=== PATIENT | female | born 1945 | race Caucasian/White ===

== ENCOUNTER → 2018-02-16 | Outpatient (CLI) | payer OTHER ==
[~2018-02-16] MED LIST: ASPIR 8181 MG PO; ATORVASTATIN CA40 MG PO; CALCIUM 600 +1 EAC1 PO; CARDIZEM CD240 MG PO; CIPRO500 MG PO; CO Q-10100 MG PO; DIOVAN320 MG PO; FISH OIL500 M2 PO; LEVOTHYROXIN0.075 MG PO; MULTIVITAMINS1 EAC7 PO; PHENAZOPYRIDIN200 M2 PO; VITAMINC500
== END ==
LOC: RAD 10:20
DX: Z12.31 Encounter for screening mammogram for malignant neoplasm of breast (principal)

== ENCOUNTER → 2018-02-23 | Outpatient (CLI) | payer OTHER | LOC: NUC 10:18 → EDSTATUS 13:38 → NUC 13:43 | DX: M85.89 Other specified disorders of bone density and structure, multiple sites (principal); Z78.0 Asymptomatic menopausal state ==

== ENCOUNTER → 2018-04-07 | Outpatient (CLI) | payer OTHER ==
--- NOTE | ~2018-04-07 | TST ---
[facility] [place] [address] TREADMILL STRESS TEST Name: FARIHA LOPEZ Room #: REG [facility]#: [id number] Admission: 04/07/18 Attend Phys: Juan Palencia, Discharge: Date of : 43 Date of Service: 04/07/181705 Report #: [id number] THIS REPORT FOR: //name// APPROVED REPORT Patient Location: Out-Patient Room #: Echo lab Stress Nurse: Aubree Colorado RN David Lopez exercised for 5 minutes on the standard Jose Cruz protocol and achieved 142 bpm or 96% of her maximal predicted heart rate for age. The pretest blood pressure was 160/80 and chel[place] with exercise to 202/80. She stopped exercising due to dyspnea and fatigue. Maximum workload achieved 7.0 METS. Resting EKG: Sinus rhythm normal tracing Stress EKG: No ischemic or echocardiographic changes. No dysrhythmias. Conclusion 1. Maximal treadmill exercise study negative for exercise-induced ischemia. 2. No subjective signs of ischemia. No diagnostic ischemic electrocardiographic changes. No dysrhythmias. 3. The study was associated with average exercise capacity (7.0 METS) <ELECTRONICALLY SIGNED> By: Juan Palencia MD, [facility] 04/07/181705 05 05 Juan Palencia MD, FACC /INF
--- NOTE | ~2018-04-07 | 2DMMODE ---
[facility] [address] [address] 2 D/M-MODE ECHOCARDIOGRAM Name: FARIHA LOPEZ Room #: REG [facility]#: [id number] Admission: 04/07/18 Attend Phys: Juan Palencia, Discharge: Date of : 43 Date of Service: 04/07/18 1703 Report #: [id number] THIS REPORT FOR: //name// APPROVED REPORT Study performed: 04/07/2018 13:10:22 EXAM: Comprehensive 2D, Doppler, and color-flow Echocardiogram Patient Location: Out-Patient Status: routine BSA: 1.84 HR: 64 bpm Rhythm: NSR Other Information Study Quality: Adequate Indications Tachycardia Hx: HTN, HLD 2D Dimensions RVDd: 38.32 mm LVEF(%): 75.67 (>50%) IVSd: 12.10 (7-11mm) LVOT Diam: 20.24 (18-24mm) LVDd: 38.98 mm PWd: 11.85 (7-11mm) LVDs: 21.90 (25-40mm) Aortic Root: 31.56 mm IVC: 17.00 mm Noriega's LVEF: 75.67 % Volumes Left Atrial Volume (Systole) Single Plane 4CH: 36.82 mL Single Plane 2CH: 27.62 mL LA ESV Index: 19.00 mL/m2 Aortic Valve AoV Peak Rajinder.: 1.33 m/s AO Peak Gr.: 7.05 mmHg LVOT Max P.41 mmHg LVOT Max V: 1.05 m/s NATHALIE Vmax: 2.54 cm2 Mitral Valve E/A Ratio: 1.2 [facility] [address] [place] [address] 2 D/M-MODE ECHOCARDIOGRAM Name: FARIHA LOPEZ Room #: [facility]#: [id number] Admission: 04/07/18 Attend Phys: Juan Palencia, Discharge: Date of : 43 Date of Service: 04/07/18 1703 Report #: [id number] MV Decel. Time: 165.28 ms MV E Max Rajinder.: 0.90 m/s MV A Rajinder.: 0.78 m/s MV PHT: 47.93 ms IVRT: 83.04 ms Pulmonary Valve PV Peak Rajinder.: 0.81 m/s PV Peak Gr.: 2.61 mmHg Pulmonary Vein P Vein S: 0.74 m/s P Vein A: 0.55 m/s P Vein D: 0.57 m/s P Vein A Dur.: 147.6 msec P Vein S/D Ratio: 1.30 Tricuspid Valve TR Peak Rajinder.: 2.59 m/s RAP Estimate: 5.00 mmHg TR Peak Gr.: 26.76 mmHg PA Pressure: 32.00 mmHg Left Ventricle The left ventricle is normal size. There is normal LV segmental wall motion. Mild concentric left ventricular hypertrophy. Left ventricular systolic function is hyperdynamic. LVEF is 60-65%. Moderate diastolic dysfunction is present (pseudonormal filling). Right Ventricle The right ventricle is normal size. The right ventricular systolic function is normal. Atria The left atrium size is normal. Right atrium is at the upper limits of normal. Aortic Valve The aortic valve is sclerotic, trileaflet. Trace aortic regurgitation. There is no aortic valvular stenosis. Mitral Valve The mitral valve is normal in structure. Mild mitral regurgitation. No evidence of mitral valve stenosis. Tricuspid Valve The tricuspid valve is normal in structure. Mild tricuspid regurgitation. Estimated PAP 30 mHg. [facility] [address] [place] [address] 2 D/M-MODE ECHOCARDIOGRAM Name: JESSICAFARIHA Room #: REG [facility]#: [id number] Admission: 04/07/18 Attend Phys: Juan Palencia, Discharge: Date of : 43 Date of Service: 04/07/18 1703 Report #: [id number] Pulmonic Valve Pulmonic valve is not well visualized. Trace pulmonic regurgitation. Great Vessels The aortic root is normal in size. Ascending aorta is not well visualized. IVC is normal in size and collapses >50% with inspiration. Pericardium There is no pericardial effusion. <Conclusion> Left ventricular systolic function is hyperdynamic. There is normal LV segmental wall motion. LVEF is 60-65%. Mild LVH Moderate diastolic dysfunction The aortic valve is sclerotic, trileaflet. No stenosis. Trace aortic regurgitation. The mitral valve is normal in structure. Mild mitral regurgitation. Mild tricuspid regurgitation. Estimated pulmonary artery pressure of 30 mmHg. There is no pericardial effusion. <ELECTRONICALLY SIGNED> By: Juan Palencia MD, [facility] 04/07/18 170 02 02 Juan Palencia MD, FACC /INF
== END ==
LOC: CV 12:50
DX: I08.1 Rheumatic disorders of both mitral and tricuspid valves (principal)

== ENCOUNTER → 2019-04-28 | Outpatient (CLI) | payer OTHER | LOC: RAD 12:02 | DX: Z12.31 Encounter for screening mammogram for malignant neoplasm of breast (principal) ==

== ENCOUNTER → 2019-08-31 | Outpatient (CLI) | payer OTHER | LOC: RAD 13:01 | DX: Z01.818 Encounter for other preprocedural examination (principal); M47.814 Spondylosis without myelopathy or radiculopathy, thoracic region ==

== ENCOUNTER → 2020-03-07 | Outpatient (CLI) | payer OTHER | LOC: SJCVC 10:49 | DX: R00.2 Palpitations (principal); I47.1 Supraventricular tachycardia; I10 Essential (primary) hypertension; E78.5 Hyperlipidemia, unspecified; E78.00 Pure hypercholesterolemia, unspecified; Z79.82 Long term (current) use of aspirin; Z79.899 Other long term (current) drug therapy; Z82.49 Family history of ischemic heart disease and other diseases of the circulatory system ==

== ENCOUNTER → 2020-04-03 | Outpatient (CLI) | payer OTHER | LOC: ULTRA 15:57 | DX: M79.661 Pain in right lower leg (principal); R60.0 Localized edema ==

== ENCOUNTER → 2020-07-31 | Outpatient (CLI) | payer OTHER | LOC: BC 07:55 | PROVIDERS: ATTEND Neuromusculoskeletal Medicine & OMM | DX: Z12.31 Encounter for screening mammogram for malignant neoplasm of breast (principal) ==

== ENCOUNTER 2020-08-28 04:41 | Inpatient (IN) | payer OTHER ==
[~2020-08-28] VITALS: Ht 170.2 cm; Wt 74.8 kg
[2020-08-28 04:42] VITALS: BP 164/71
[2020-08-28 05:08] LABS: ABSOLUTE NEUTROPHILS 4.8 thou/uL (1.4-8.2); BASOPHILS 0.5 % (0.0-2.0); EOSINOPHILS 2.7 % (0.0-3.0); HEMATOCRIT 35.8 % (37.0-47.0); HEMOGLOBIN 12.2 gm/dL (12.0-15.0); LYMPHOCYTES 17.4 % (24.0-44.0); MCH 30.7 pg (26.0-34.0); MCHC 34.1 g/dL (28.0-37.0); MCV 90.2 fL (80.0-100.0); MONOCYTES 8.2 % (1.0-8.0); PLATELET COUNT 203 thou/uL (150-400); POLYS 71.2 % (36.0-66.0); RBC 3.96 mil/uL (4.20-5.00); RDW 13.8 % (10.5-14.5); WBC 6.7 thou/uL (4.0-11.0)
[2020-08-28 05:18] LABS: ANION GAP 10 mmol/L (7-16); BUN 17 mg/dL (7-18); CALCIUM 8.1 mg/dL (8.5-10.1); CHLORIDE 105 mmol/L (98-107); CO2 25 mmol/L (21-32); CREATININE 0.8 mg/dL (0.6-1.0); GLUCOSE 97 mg/dL (74-106); POTASSIUM 4.1 mmol/L (3.5-5.1); SODIUM 140 mmol/L (136-145)
[2020-08-28 05:27] LABS: ALBUMIN 3.5 g/dL (3.4-5.0); SGOT 20 U/L (15-37); SGPT 28 U/L (30-65); TOTAL BILIRUBIN 0.4 mg/dL (0.2-1.0); TROPONIN-I <0.06 ng/mL (<0.06)
[2020-08-28 05:56] VITALS: BP 164/71
[2020-08-28] MEDS ORDERED: OMEPRAZOLE 20 M20 M1 PO (06:00)
[2020-08-28] MEDS ORDERED: BENICAR20 MG PO (06:01)
[2020-08-28 07:00] VITALS: BP 144/61
[2020-08-28 07:15] VITALS: BP 149/68
--- NOTE | 2020-08-28 07:43 | EKG ---
[facility] [place] [address] [place] [address] ELECTROCARDIOGRAM REPORT Name: DERIAN LOPEZIA Edwin Room #: 200-I ADM IN M.R.#: [id number] Admission: 08/28/20 Attend Phys: Dm Connolly MD Discharge: Date of : 43 Report #: [id number] THIS REPORT FOR: cc: Valdez Kevin,Nigel Dye MD [facility] ~ THIS REPORT FOR: //name// [facility] ED Test Date: 2020-08-28 Test Time: 04:46:37 Pat Name: FARIHA LOPEZ Department: Room: 200 Gender: F Pump Technician: MARÍA : 1945 Requested By: Nicole Houston Order Number: [id number] MD: Nigel Garcia Measurements Intervals [place] Rate: 71 P: 70 OK: 150 QRS: 50 QRSD: 113 T: 36 QT: 393 QTc: 428 Interpretive Statements Sinus rhythm Borderline intraventricular conduction delay Compared to ECG 01/29/2005 21:05:58 Sinus tachycardia no longer present T-wave abnormality no longer present Possible ischemia no longer present Electronically Signed On 08-28-2020 7:43:28 CDT by Nigel Garcia [email or web address] <ELECTRONICALLY SIGNED> By: Nigel Garcia MD, FAC 08/28/20 0743 5 5 Nigel Garcia MD, FAC /EPI
[2020-08-28 07:57] LABS: CHOLESTEROL 178 mg/dL (<200); HDL CHOLESTEROL 81 mg/dL (>40); LDL CHOLESTEROL 87 mg/dL (<100); TC:HDL 2.2 Ratio (Not establshd); TRIGLYCERIDE 51 mg/dL (<150); VLDL 10 mg/dL (<40)
[2020-08-28] MEDS ORDERED: MOBIC7.5 MG PO (10:11)
--- NOTE | 2020-08-28 11:22 | EXE ---
[facility] [place] [address] [address] STRESS ECHOCARDIOGRAM Name: FARIHA LOPEZ Edwin Room #: 200-I ADM IN M.R.#: [id number] Admission: 08/28/20 Attend Phys: Dm Connolly MD Discharge: Date of : 43 Report #: [id number] THIS REPORT FOR: cc: Valdez Kevin,Juan Walters MD [facility] ~ THIS REPORT FOR: //name// APPROVED REPORT Study performed: 08/28/2020 09:56:13 Exam: Stress Echocardiogram Indication: Chest pain Patient Location: Echo lab Stress Nurse: Lynette Mijares RN Room #: 200 Status: routine Ht: 5 ft 7 in Medical History Medical History: HTN, Hyperlipidemia Cardiac Risk Factors: HTN, Hyperlipidemia Procedure The patient underwent an Exercise Stress Test using the Jose Cruz Protocol. Blood pressure, heart rate, and EKG were monitored. An Echocardiogram was performed by autobody technician in four stages in quad fashion. At peak stress, four selected images were obtained and placed side by side with resting images for comparison. Stress Test Details Stress Test: Exercise stress testing was performed using a Jose Cruz protocol. HR Resting HR: 66 bpm Max Heart Rate (APMHR): 145 bpm Max HR Achieved: 133 bpm Target HR (85% APMHR): 123 bpm % of APMHR: 91 Recovery HR: 78 bpm HR response to stress: Normal HR response to stress BP Resting BP: 138/75 mmHg [facility] [address] [place] [address] STRESS ECHOCARDIOGRAM Name: FARIHA LOPEZ Room #: 200-I ADM IN [facility].#: [id number] Admission: 08/28/20 Attend Phys: Dm Connolly MD Discharge: Date of : 43 Report #: [id number] Max BP: 158/78 mmHg Recovery BP: 148/75 mmHg BP response to stress: Normal blood pressure response to stress. ECG Resting ECG: Sinus Rhythm Stress ECG: Sinus Tachycardia ST Change: Non-ischemic Maximum ST Deviation: 0 mm Arrhythmia: None Recovery ECG: Sinus Tachycardia Recovery ST Change: Non-ischemic Recovery ST Deviation: 0 mm Recovery Arrhythmia: None Clinical Reason for Termination: Maximal effort, Dyspnea Stress Symptoms: Dyspnea Exercise duration: 3 min 42 sec Highest Stage Achieved: Stage 2: 2.5 mph at 12% grade. Angina Score: None Stress ECG Conclusion Clinical: Non-ischemic ECG: Non-ischemic Neely Treadmill Score is 3.0 which is Moderate risk. Pre-Stress Echo The resting Echocardiogram showed normal left ventricular contractility with an estimated Ejection Fraction of about 60-65%. The resting echocardiogram demonstrated normal wall motion in all wall segments. Post-Stress Echo The stress Echocardiogram showed normal left ventricular contractility with an estimated Ejection Fraction of about 65-70%. Compared to rest, there were no stress-induced wall motion abnormalities. Clinical No clinical or ECG evidence for ischemia. Conclusion Clinical Response: Non-ischemic Exercise Capacity: Average Stress ECG Response: Non-ischemic [facility] [address] [place] [address] STRESS ECHOCARDIOGRAM Name: FARIHA LOPEZ Room #: 200-I ADM IN ..#: [id number] Admission: 08/28/20 Attend Phys: Dm Connolly MD Discharge: Date of : 43 Report #: [id number] Stress Echo Images: Non-ischemic The left ventricle is normal in size and wall thickness in both the rest and stress images. Normal stress echocardiogram with maximal exercise stress. Other Information Study Quality: Adequate <Conclusion> The left ventricle is normal in size and wall thickness in both the rest and stress images. Normal stress echocardiogram with maximal exercise stress. <ELECTRONICALLY SIGNED> By: Juan Palencia MD, FACC 08/28/201120 20 20 Juan Palencia MD, FACC /INF
[2020-08-28 11:30] VITALS: BP 115/54
[2020-08-28 11:57] VITALS: BP 149/68
--- NOTE | 2020-08-28 13:09 | NUR ---
NEW ADMIT AT CHANGE OF SHIFT, ALERT X4, FROM HOME ALONE, PAIN TO NECK AND LEFT SHOULDER/ARM MANAGED WITH PRN MEDS. STRESS TEST COMPLETED WITHOUT ABNORMALITIES. DC HOME WITH SELF CARE AND FOLLOW UP WITH PCP.
== END 2020-08-28 14:42 | disposition home or self-care (01) | DRG 206 ==
LOC: ER 04:41 → 2N 05:40 → EROBS 05:40 → 2N 06:44
PROVIDERS: Nurse Practitioner; Student in an Organized Health Care Education/Training Program; ADMIT Hospitalist; ATTEND Hospitalist
DX: M94.0 Chondrocostal junction syndrome [Tietze] (principal); R07.89 Other chest pain; I10 Essential (primary) hypertension; M25.512 Pain in left shoulder; M54.2 Cervicalgia; E78.5 Hyperlipidemia, unspecified; E03.9 Hypothyroidism, unspecified; K21.9 Gastro-esophageal reflux disease without esophagitis; Z96.649 Presence of unspecified artificial hip joint; Z79.899 Other long term (current) drug therapy; Z79.82 Long term (current) use of aspirin; Z88.8 Allergy status to other drugs, medicaments and biological substances
CPT/HCPCS: 10081

== ENCOUNTER → 2020-08-29 | Outpatient (CLI) | payer OTHER ==
[~2020-08-29] MED LIST changes: +BENICAR20 MG PO; +MOBIC7.5 MG PO; +OMEPRAZOLE 20 M20 M1 PO
== END ==
LOC: RAD 12:34
PROVIDERS: ATTEND Neuromusculoskeletal Medicine & OMM
DX: M50.121 Cervical disc disorder at C4-C5 level with radiculopathy (principal); M48.02 Spinal stenosis, cervical region

== ENCOUNTER → 2021-02-28 | Outpatient (CLI) | payer OTHER | LOC: SJCVC 10:01 | PROVIDERS: ATTEND Internal Medicine | DX: I47.1 Supraventricular tachycardia (principal); E78.5 Hyperlipidemia, unspecified; I10 Essential (primary) hypertension; M54.12 Radiculopathy, cervical region; K21.9 Gastro-esophageal reflux disease without esophagitis; E03.9 Hypothyroidism, unspecified; E55.9 Vitamin D deficiency, unspecified; Z79.82 Long term (current) use of aspirin ==

== ENCOUNTER → 2021-09-04 | Outpatient (CLI) | payer OTHER | LOC: SJCVC 09:50 | PROVIDERS: ATTEND Internal Medicine | DX: I47.1 Supraventricular tachycardia (principal); I10 Essential (primary) hypertension; E78.5 Hyperlipidemia, unspecified; M54.12 Radiculopathy, cervical region; E78.00 Pure hypercholesterolemia, unspecified; E87.6 Hypokalemia; Z82.49 Family history of ischemic heart disease and other diseases of the circulatory system; Z79.82 Long term (current) use of aspirin; Z79.899 Other long term (current) drug therapy; Z88.8 Allergy status to other drugs, medicaments and biological substances ==